=== PATIENT | female | born 1940 | race Caucasian/White ===

== ENCOUNTER 2017-01-25 07:58 | Emergency (ER) | payer OTHER ==
[~2017-01-25] VITALS: Ht 160 cm; Wt 84.0 kg
[2017-01-25 08:08] VITALS: Ht 160 cm; Wt 84.0 kg
[2017-01-25 08:22] VITALS: TEMP 97.8
--- NOTE | 2017-01-25 08:45 | ERD ---
ER Documentation Chief Complaint Date/Time DATE: 01/25/17 TIME: 08:42 Chief Complaint LT LOWER LEG PAIN S/P FALL THIS MORNING HPI This is a 76-year-old female with a known history of severe rheumatoid arthritis. The patient was brought in by EMS after her called because the patient had fallen while attempting to go to the bathroom. The patient indicated she ambulates with a walker due to her severe rheumatoid arthritis. She had used the bathroom and attempted to get up but slipped as her walker rolled forward. She indicated she did not hit her head or lose consciousness. She stated she is complaining of pain over her left lower extremity. She denies any back pain. She denies any shortness of breath at rest or exertion and no pleuritic chest pain. ROS All systems reviewed and are negative except as per history of present illness. Medications Home Meds Reported Medications Azelastine Hcl* (Azelastine Hcl*) 137 Mcg/0.137 Ml [place].pump, 1 SPRAY NASAL BID , #1 EA TO EACH NOSTRIL 01/25/17 Hydrochlorothiazide* (Hydrochlorothiazide*) 25 Mg Tab, 25 MG PO DAILY, #30 TAB 01/25/17 Mirtazapine* (Mirtazapine*) 7.5 Mg Tablet, 7.5 MG PO HS, TAB 01/25/17 Alendronate Sodium* (Fosamax*) 70 Mg Tablet, 70 MG PO Q7D, #4 TAB 01/25/17 Prednisone* (Prednisone*) 1 Mg Tablet, 3 MG PO DAILY, TAB 01/25/17 Metoprolol Tartrate* (Lopressor*) 100 Mg Tablet, 100 MG PO BID, #60 TAB 01/25/17 Lisinopril* (Lisinopril*) 40 Mg Tablet, 40 MG PO BID, #30 TAB 01/25/17 Potassium Chloride* (K-Dur*) 10 Meq Tab.prt.sr, 10 MEQ PO DAILY, TAB PT TAKE EVERY OTHER DAY DR NOT AWARE 01/25/17 Adalimumab (Humira) 40 Mg/0.8 Ml Pen.ij.kit, 40 MG SQ EVERY OTHER Thursday01/25/17 Allergies Allergies: Coded Allergies: Penicillins (Verified Allergy, Unknown, RASH, 01/25/17) Physical Exam Vitals Vital Signs Date Time Temp Pulse Resp B/P Pulse Ox O2 Delivery O2 Flow Rate FiO2 01/25/17 13:20 89 22 147/85 95 Room Air 01/25/17 10:39 87 18 129/86 98 01/25/17 08:22 97.8 90 16 147/98 95 Room Air 01/25/17 08:08 97.8 92 20 147/98 96 Physical Exam Constitutional:Well-developed. Well-nourished. HEENT:Normocephalic. Atraumatic.Pupils were equal round reactive to light. Moist mucous membranes.No tonsillar exudates. No nasoseptal hematoma. No hemotympanum. Neck: No nuchal rigidity. No lymphadenopathy. No posterior cervical spine tenderness or step-offs. Respiratory: Not using accessory muscles of respiration.Lungs were clear to auscultation bilaterally. No rhonchi. No rales. No wheezing. Cardiovascular: Regular rate regular rhythm.No murmurs. No rubs were appreciated.S1, S2 normal. Distal pulses are palpable 2+ bilaterally. GI: Abdomen was soft. Nontender. Non Distended. No pulsatile abdominal masses or bruits. No rebound. No guarding. Bowel sounds were present and normal. Muscle skeletal: Flexion contraction of the bilateral lower extremities with tenderness over the medial distal left lower extremity. Severe rheumatoid arthritic changes of the digits of the upper and lower extremities with lateral angulation deformity of the bilateral feet. No tenderness over the left medial or lateral malleolus. No midfoot tenderness on the left. No tenderness over the base of the fifth metatarsal. Skin: No petechia, no purpura. No lesions on the palms or the soles of the feet. No maculopapular rash. NEURO: Patient was alert, awake, orientated x3.No facial droop. Gait not observed as patient was in too much discomfort and speech had regular rate and rhythm. No focal neurological deficits. Result Diagram: 01/25/17 1036 01/25/17 1036 Results 24 hrs Laboratory Tests Test 01/25/17 10:36 White Blood Count 9.410^3/ul Red Blood Count 4.5910^6/ul Hemoglobin 14.3g/dl Hematocrit 43.2% Mean Corpuscular Volume 94.1fl Mean Corpuscular Hemoglobin 31.2pg Mean Corpuscular Hemoglobin Concent 33.1g/dl Red Cell Distribution Width 14.2% Platelet Count 74677^3/UL Mean Platelet Volume 10.5fl Neutrophils % 74.8% Lymphocytes % 15.3% Monocytes % 7.3% Eosinophils % 1.8% Basophils % 0.4% Nucleated Red Blood Cells % 0.0/100WBC Neutrophils # 7.010^3/ul Lymphocytes # 1.410^3/ul Monocytes # 0.710^3/ul Eosinophils # 0.210^3/ul Basophils # 0.010^3/ul Nucleated Red Blood Cells # 0.010^3/ul Prothrombin Time 12.8Sec Prothrombin Time Ratio 1.0 INR International Normalized Ratio 0.96 Activated Partial Thromboplast Time 25.4Sec Sodium Level 142mmol/L Potassium Level 3.4mmol/L Chloride Level 107mmol/L Carbon Dioxide Level 28mmol/L Anion Gap 10 Blood Urea Nitrogen 13mg/dl Creatinine 0.67mg/dl Glucose Level 92mg/dl Calcium Level 9.3mg/dl Total Bilirubin 0.4mg/dl Direct Bilirubin 0.00mg/dl Indirect Bilirubin 0.4mg/dl Aspartate Amino Transf (AST/SGOT) 25IU/L Alanine Aminotransferase (ALT/SGPT) 28IU/L Alkaline Phosphatase 114IU/L Total Protein 6.4g/dl Albumin 3.3g/dl Globulin 3.10g/dl Albumin/Globulin Ratio 1.06 Current Medications Medications (Trade) Dose Ordered Sig/Liss Route PRN Reason Start Time Stop Time Status Last Admin Dose Admin Sodium Chloride (NS) 1,000 ml @ 1,000 mls/hr Q1H STAT IV 01/25/17 10:09 01/25/17 11:08 DC 01/25/17 10:32 Procedures/MDM This is a very pleasant 76-year-old female with a known history of severe rheumatoid arthritis who presented to the emergency department after she had a mechanical fall. The patient had IV access established by nursing staff and was given intravenous morphine and Dilaudid for analgesic control prior to radiographic imaging being obtained. I obtained x-rays of the patient's left tibia and fibula which indicated the following reviewed by both myself and the radiologist: 1. Acute comminuted fractures involving the distal left tibial and fibular metadiaphysis. There is no significant displacement. 2. Old appearing fracture deformity involving the proximal left fibular diaphysis. 3. Old appearing fractures involving the lateral tibial plateau and the medial femoral condyle with a calcification, possibly an avulsed fragment projecting medial to the femoral tibial joint space. 4. Osteoporosis 5. Vascular calcification. The patient had ancillary laboratory work which indicated no electrolyte abnormalities. The patient received a liter bolus of 0.9 normal saline. I did feel the patient was stable for transfer and spoke with her [facility] physician who is going to arrange for the patient to be transferred to a rehabilitation facility. The patient had been placed in a posterior leg splint for immobilization. Prior to the splint being placed there is no signs of compartment syndrome, skin breakdown or vascular compromise agent. After the splint was placed the patient remained neurovascularly intact. Departure Diagnosis: Primary Impression: Fracture, tibia, with fibula Encounter type: initial encounter Fracture type: closed Laterality: left Qualified Code: S82.202A - Fracture, tibia, with fibula, left, closed, initial encounter Condition: Serious BARBARA JOHNSON Jan 25, 2017 08:45
--- NOTE | 2017-01-25 09:45 | RADRPT ---
PROCEDURE: XR Left Tibia-Fibula CLINICAL INDICATION: Fall with history of RA, pain TECHNIQUE: AP and lateral radiographs were submitted COMPARISON: None FINDINGS: Osseous structures: There is a comminuted oblique fracture involving the distal left tibial metadiap hysis in which the main distal fragment is displaced dorsally by a cortical width. There is a commi nuted fracture of the distal left fibular metadiaphysis without significant displacement. There is an old appearing fracture involving the proximal left fibular diaphysis without significant displace ment and with callus bridging identified laterally. There is an old appearing fracture resulting in depression deformity to the lateral tibial plateau and there appears of the an avulsion at the dist al medial femoral condyle which is likely old. Joint spaces: There is narrowing of the medial femoral tibial joint space. Soft tissues: A calcification projects medial to the femoral tibial joint. Vascular calcification i s noted. IMPRESSION: 1. Acute comminuted fractures involving the distal left tibial and fibular metadiaphysis. There is no significant displacement. 2. Old appearing fracture deformity involving the proximal left fibular diaphysis. 3. Old appearing fractures involving the lateral tibial plateau and the medial femoral condyle with a calcification, possibly an avulsed fragment projecting medial to the femoral tibial joint space. 4. Osteoporosis 5. Vascular calcification. Physician Jose Luis Date Time Electronically viewed and signed by Physician Jose Luis on 01/25/2017 09:44 /
[2017-01-25] MEDS ORDERED: SOD CHLORIDE 0.9% 1,000 ML IV STA (10:09)
[2017-01-25 10:46] LABS: ADD SCAN DIFF NO
[2017-01-25 10:48] LABS: BASOPHILS % 0.4 % (0.0-2.0); EOSINOPHILS # 0.2 10^3/ul (0.0-0.5); EOSINOPHILS % 1.8 % (0.0-7.0); HEMATOCRIT 43.2 % (37.0-47.0); HEMOGLOBIN 14.3 g/dl (12.0-16.0); LYMPHOCYTES # 1.4 10^3/ul (0.8-2.9); LYMPHOCYTES % 15.3 % (15.0-51.0); MEAN CORPUSCULAR HEMOGLOBIN 31.2 pg (29.0-33.0); MEAN CORPUSCULAR HGB CONC 33.1 g/dl (32.0-37.0); MEAN CORPUSCULAR VOLUME 94.1 fl (82.0-101.0); MEAN PLATELET VOLUME 10.5 fl (7.4-10.4); MONOCYTE # 0.7 10^3/ul (0.3-0.9); MONOCYTES % 7.3 % (0.0-11.0); NEUTROPHILS % 74.8 % (39.0-77.0); PLATELET COUNT 190 10^3/UL (140-415); RED BLOOD COUNT 4.59 10^6/ul (4.20-5.40); RED CELL DISTRIBUTION WIDTH 14.2 % (11.5-14.5); WHITE BLOOD COUNT 9.4 10^3/ul (4.8-10.8)
[2017-01-25 11:03] LABS: ALBUMIN 3.3 g/dl (3.3-4.9)
[2017-01-25 11:04] LABS: POTASSIUM 3.4 mmol/L (3.5-5.1)
[2017-01-25 11:06] LABS: ALBUMIN/GLOBULIN RATIO 1.06; BILIRUBIN,INDIRECT 0.4 mg/dl (0-1.1); BILIRUBIN,TOTAL 0.4 mg/dl (0.2-1.3); CREATININE 0.67 mg/dl (0.44-1.00); TOTAL PROTEIN 6.4 g/dl (6.1-8.1)
[2017-01-25 11:07] LABS: CALCIUM 9.3 mg/dl (8.4-10.2)
[2017-01-25 11:10] LABS: INR 0.96; PROTIME 12.8 Sec (12.2-14.2)
[2017-01-25 11:11] LABS: PARTIAL THROMBOPLASTIN TIME 25.4 Sec (25.0-35.0)
[2017-01-25] MEDS ORDERED: ADAL40PE SQ (11:14)
[2017-01-25] MEDS ORDERED: POTA10TA37 PO (11:15)
[2017-01-25] MEDS ORDERED: METO-407 PO (11:16)
[2017-01-25] MEDS ORDERED: LISI40TA9 PO (11:16)
[2017-01-25] MEDS ORDERED: MIRT7.5T8 PO (11:17)
[2017-01-25] MEDS ORDERED: ALEN70TA30 PO (11:17)
[2017-01-25] MEDS ORDERED: PRED1TAB2 PO (11:17)
[2017-01-25] MEDS ORDERED: AZEL137S9 NASAL (11:18)
[2017-01-25] MEDS ORDERED: HYD25 PO (11:18)
[2017-01-25] MEDS ORDERED: morphine 4 MG/ML VIAL IV STA (13:55)
[2017-01-25] MEDS ORDERED: ONDANSETRON 4 MG INJ IV STA (13:55)
[2017-01-25 15:06] VITALS: BP 134/80; PULSE 85; RESP 18
== END 2017-01-25 15:50 | disposition home or self-care (01) ==
LOC: E/R 07:58
DX: S82.202A Unspecified fracture of shaft of left tibia, initial encounter for closed fracture (principal); R40.2252 Coma scale, best verbal response, oriented, at arrival to emergency department; R40.2142 Coma scale, eyes open, spontaneous, at arrival to emergency department; R40.2362 Coma scale, best motor response, obeys commands, at arrival to emergency department; W01.0XXA Fall on same level from slipping, tripping and stumbling without subsequent striking against object, initial encounter; Y92.9 Unspecified place or not applicable
CPT/HCPCS: 29515; 73590; 80053; 85025; 85610; 85730; J2270; J2405; J7030; 36415; 96374; 96375

== ENCOUNTER 2017-05-09 09:35 | Emergency (ER) | payer OTHER ==
[~2017-05-09] VITALS: Ht 172.7 cm; Wt 55.0 kg
[~2017-05-09 09:35] MED LIST: ADAL40PE SQ; ALEN70TA30 PO; AZEL137S9 NASAL; HYD25 PO; LISI40TA9 PO; METO-407 PO; MIRT7.5T8 PO; POTA10TA37 PO; PRED1TAB2 PO
[2017-05-09] MEDS ORDERED: SODIUM CHLORIDE 0.9% 1L BAG IV* STA (09:47)
[2017-05-09 09:50] VITALS: Ht 172.7 cm; Wt 55.0 kg
[2017-05-09] MEDS ORDERED: VANCOMYCIN 1 GM (PMX) 250 ML IVPB ONE (10:00)
[2017-05-09] MEDS ORDERED: IBUPROFEN 600 MG TAB PO ONE (10:00)
[2017-05-09] MEDS ORDERED: LEVOFLOXACIN 750MG/D5W (PMX) 150 ML IVPB ONE (10:00)
[2017-05-09 10:14] LABS: ABNORMAL IP MESSAGE 1; BASOPHILS % 0.1 % (0.0-2.0); HEMATOCRIT 34.1 % (37.0-47.0); HEMOGLOBIN 11.2 g/dl (12.0-16.0); LYMPHOCYTES # 0.6 10^3/ul (0.8-2.9); LYMPHOCYTES % 3.2 % (15.0-51.0); MEAN CORPUSCULAR HEMOGLOBIN 28.2 pg (29.0-33.0); MEAN CORPUSCULAR HGB CONC 32.8 g/dl (32.0-37.0); MEAN CORPUSCULAR VOLUME 85.9 fl (82.0-101.0); MEAN PLATELET VOLUME 10.7 fl (7.4-10.4); MONOCYTE # 1.4 10^3/ul (0.3-0.9); MONOCYTES % 8.3 % (0.0-11.0); NEUTROPHIL # 14.8 10^3/ul (1.6-7.5); NEUTROPHILS % 87.2 % (39.0-77.0); PLATELET COUNT 179 10^3/UL (140-415); RED BLOOD COUNT 3.97 10^6/ul (4.20-5.40); RED CELL DISTRIBUTION WIDTH 14.5 % (11.5-14.5)
--- NOTE | 2017-05-09 10:23 | RADRPT ---
PROCEDURE: XR Chest. CLINICAL INDICATION: Chest pain TECHNIQUE: Single frontal view of the chest was obtained. COMPARISON: None FINDINGS: The heart is within normal limits. The thoracic aorta is calcified. There are mild left lower lobe linear atelectatic changes. The lungs are otherwise clear. There is no pleural effusion or pneumothorax. There is a right shoulder replacement. RPTAT: AA IMPRESSION: No acute disease. Calcified aorta consistent with atherosclerotic disease. .Renzo Fox MD, MD Date Time Electronically viewed and signed by .Renzo Fox MD, on 05/09/2017 10:23 .S/
[2017-05-09 10:25] LABS: POSITIVE DIFF @See below
[2017-05-09 10:31] LABS: INR 1.23; PROTIME 15.6 Sec (12.2-14.2); PT RATIO 1.2
[2017-05-09 10:35] LABS: ALANINE AMINOTRANSFERASE 33 IU/L (13-69); ALKALINE PHOSPHATASE 118 IU/L (42-121); ANION GAP 16 (8-16); ASPARTATE AMINO TRANSFERASE 28 IU/L (15-46); BILIRUBIN,INDIRECT 0.7 mg/dl (0-1.1); BILIRUBIN,TOTAL 0.7 mg/dl (0.2-1.3); BLOOD UREA NITROGEN 16 mg/dl (7-20); CALCIUM 8.3 mg/dl (8.4-10.2); CARBON DIOXIDE 23 mmol/L (21-31); CHLORIDE 104 mmol/L (97-110); CREATININE 0.62 mg/dl (0.44-1.00); GLUCOSE 126 mg/dl (70-220); POTASSIUM 4.4 mmol/L (3.5-5.1); SODIUM 139 mmol/L (135-144); TOTAL PROTEIN 6.3 g/dl (6.1-8.1)
[2017-05-09] MEDS ORDERED: TRIA1CAP PO (10:44)
[2017-05-09] MEDS ORDERED: PRED5 PO (10:44)
[2017-05-09] MEDS ORDERED: METO-429 PO (10:44)
[2017-05-09 10:46] LABS: TROPONIN-I < 0.012 ng/ml (0.00-0.12)
[2017-05-09 10:58] LABS: ADD UMIC YES; UR ASCORBIC ACID 40 mg/dL (NEGATIVE); UR BACTERIA FEW /HPF (NONE SEEN); UR BILIRUBIN (Dip) NEGATIVE (NEGATIVE); UR BLOOD (Dip) NEGATIVE (NEGATIVE); UR CLARITY SLIGHTLY CLOUDY (CLEAR); UR COLOR YELLOW (YELLOW); UR GLUCOSE (Dip) NEGATIVE (NEGATIVE); UR KETONES (Dip) NEGATIVE (NEGATIVE); UR LEUKOCYTE ESTERASE (Dip) NEGATIVE Leu/ul (NEGATIVE); UR MUCUS FEW /HPF (NONE SEEN); UR NITRITE (Dip) NEGATIVE (NEGATIVE); UR RBC 1 /HPF (0-5); UR SPECIFIC GRAVITY (Dip) 1.017 (1.003-1.030); UR TOTAL PROTEIN (Dip) 1+ mg/dl (NEGATIVE); UR UROBILINOGEN (Dip) NEGATIVE (NEGATIVE)
[2017-05-09] MEDS ORDERED: CLINDAMYCIN 600 MG/D5W (PMX) 50 ML IVPB SCH (11:30)
--- NOTE | 2017-05-09 11:47 | ERA ---
ER Documentation Chief Complaint Date/Time DATE: 05/09/17 TIME: 11:43 Chief Complaint BIB [facility] FOR EVAL OF GENERALIZED WEAKNESS. PT WITH FEVER HPI This is a 77-year-old female who presents from home for generalized weakness. Approximately 48 hours of symptoms. The patient is feeling feverish. She denies any cough or shortness of breath no abdominal pain dysuria urgency or frequency. The patient describes a right gluteal decubitus wound that appears to be worsening. ROS All systems reviewed and are negative except as per history of present illness. Medications Home Meds Reported Medications Prednisone* (Prednisone*) 5 Mg Tab, 5 MG PO DAILY, TAB 05/09/17 Metoprolol Tartrate* (Lopressor*) 50 Mg Tab, 50 MG PO BID, #60 TAB 05/09/17 Triamterene/Hydrochlorothiazid (Dyazide 37.5-25 Capsule) 1 Each Capsule, 1 TAB PO DAILY, CAP 05/09/17 Azelastine Hcl* (Azelastine Hcl*) 137 Mcg/0.137 Ml [place].pump, 1 SPRAY NASAL BID , #1 EA TO EACH NOSTRIL 01/25/17 Mirtazapine* (Mirtazapine*) 7.5 Mg Tablet, 7.5 MG PO HS, TAB 01/25/17 Lisinopril* (Lisinopril*) 40 Mg Tablet, 40 MG PO BID, #30 TAB 01/25/17 Discontinued Reported Medications Hydrochlorothiazide* (Hydrochlorothiazide*) 25 Mg Tab, 25 MG PO DAILY, #30 TAB 01/25/17 Alendronate Sodium* (Fosamax*) 70 Mg Tablet, 70 MG PO Q7D, #4 TAB 01/25/17 Prednisone* (Prednisone*) 1 Mg Tablet, 3 MG PO DAILY, TAB 01/25/17 Metoprolol Tartrate* (Lopressor*) 100 Mg Tablet, 100 MG PO BID, #60 TAB 01/25/17 Potassium Chloride* (K-Dur*) 10 Meq Tab.prt.sr, 10 MEQ PO DAILY, TAB PT TAKE EVERY OTHER DAY DR NOT AWARE 01/25/17 Adalimumab (Humira) 40 Mg/0.8 Ml Pen.ij.kit, 40 MG SQ EVERY OTHER Thursday01/25/17 Allergies Allergies: Coded Allergies: Penicillins (Verified Allergy, Unknown, RASH, 01/25/17) PMhx/Soc History of Surgery: Yes (Rhinoplasty, Tonsillectomy, R shoulder) Anesthesia Reaction: No Hx Neurological Disorder: No Hx Respiratory Disorders: No Hx Cardiac Disorders: Yes (Hypotension) Hx Psychiatric Problems: Yes Hx Miscellaneous Medical Probl: Yes (Rheumatoid Arthritis) Hx Alcohol Use: Yes Hx Substance Use: No Hx Tobacco Use: Yes Smoking Status: Former smoker FmHx Family History: No diabetes Physical Exam Vitals Vital Signs Date Time Temp Pulse Resp B/P Pulse Ox O2 Delivery O2 Flow Rate FiO2 05/09/17 11:30 99.0 80 18 95/59 95 Room Air 05/09/17 10:03 0 05/09/17 09:50 101.3 95 19 116/65 97 Physical Exam General: Well developed, well nourished, no acute distress Head: Normocephalic, atraumatic. Eyes: Pupils equally reactive, EOM intact ENT: Moist mucous membranes Neck: Supple, no lymphadenopathy Respiratory: Lungs clear bilaterally, no distress Cardiovascular: Tachycardia, no murmurs, rubs, or gallops Abdominal: Soft, non-tender, non-distended, no peritoneal signs : Deferred MSK: No edema, no unilateral swelling, 5/5 strength Neurologic: Alert and oriented, moving all extremities, normal speech, no focal weakness, no cerebellar signs Skin: Right gluteal area with erythema warmth and tenderness mild fluctuance and a draining wound that appears to be consistent with a draining abscess Psych: Normal mood Result Diagram: 05/09/17 1000 05/09/17 1000 Results 24 hrs Laboratory Tests Test 05/09/17 10:00 05/09/17 10:20 White Blood Count 17.010^3/ul Red Blood Count 3.9710^6/ul Hemoglobin 11.2g/dl Hematocrit 34.1% Mean Corpuscular Volume 85.9fl Mean Corpuscular Hemoglobin 28.2pg Mean Corpuscular Hemoglobin Concent 32.8g/dl Red Cell Distribution Width 14.5% Platelet Count 71117^3/UL Mean Platelet Volume 10.7fl Neutrophils % 87.2% Lymphocytes % 3.2% Monocytes % 8.3% Eosinophils % 0.0% Basophils % 0.1% Nucleated Red Blood Cells % 0.0/100WBC Neutrophils # 14.810^3/ul Lymphocytes # 0.610^3/ul Monocytes # 1.410^3/ul Eosinophils # 0.010^3/ul Basophils # 0.010^3/ul Nucleated Red Blood Cells # 0.010^3/ul Prothrombin Time 15.6Sec Prothrombin Time Ratio 1.2 INR International Normalized Ratio 1.23 Activated Partial Thromboplast Time 26.0Sec Sodium Level 139mmol/L Potassium Level 4.4mmol/L Chloride Level 104mmol/L Carbon Dioxide Level 23mmol/L Anion Gap 16 Blood Urea Nitrogen 16mg/dl Creatinine 0.62mg/dl Glucose Level 126mg/dl Lactic Acid Level 1.3mmol/L Calcium Level 8.3mg/dl Total Bilirubin 0.7mg/dl Direct Bilirubin 0.00mg/dl Indirect Bilirubin 0.7mg/dl Aspartate Amino Transf (AST/SGOT) 28IU/L Alanine Aminotransferase (ALT/SGPT) 33IU/L Alkaline Phosphatase 118IU/L Troponin I < 0.012ng/ml Total Protein 6.3g/dl Albumin 3.0g/dl Globulin 3.30g/dl Albumin/Globulin Ratio 0.90 Urine Color YELLOW Urine Clarity SLIGHTLY CLOUDY Urine pH 5.0 Urine Specific [place] 1.017 Urine Ketones NEGATIVEmg/dL Urine Nitrite NEGATIVEmg/dL Urine Bilirubin NEGATIVEmg/dL Urine Urobilinogen NEGATIVEmg/dL Urine Leukocyte Esterase NEGATIVELeu/ul Urine Microscopic RBC 1/HPF Urine Microscopic WBC 1/HPF Urine Bacteria FEW/HPF Urine Mucus FEW/HPF Urine Hemoglobin NEGATIVEmg/dL Urine Glucose NEGATIVEmg/dL Urine Total Protein 1+mg/dl Current Medications Medications (Trade) Dose Ordered Sig/Liss Route PRN Reason Start Time Stop Time Status Last Admin Dose Admin Sodium Chloride 1740 ml 1,740 ml BOLUS OVER 2 HOURS STAT IV* 05/09/17 09:47 05/09/17 09:50 DC 05/09/17 10:45 Vancomycin HCl 250 ml @ 125 mls/hr ONCE ONCE IVPB 05/09/17 10:00 05/09/17 11:59 DC Levofloxacin/ Dextrose (Levaquin 750 Mg/ D5W 150 ml (Pmx)) 150 ml @ 100 mls/hr ONCE ONCE IVPB 05/09/17 10:00 05/09/17 11:29 DC 05/09/17 10:47 Ibuprofen 600 mg 600 mg ONCE ONCE PO 05/09/17 10:00 05/09/17 10:01 DC 05/09/17 10:47 Clindamycin HCl/ Dextrose (Cleocin 600 Mg/ D5W (Pmx)) 50 ml @ 50 mls/hr ONCE IVPB 05/09/17 11:30 05/09/17 12:29 DC 05/09/17 12:34 Procedures/MDM EKG, MONITORS, & DIAGNOSTIC IMAGING: EKG: I reviewed and interpreted a 12-lead EKG. Rhythm: Normal sinus rhythm Ectopy: None Intervals: No abnormalities ST segments: No elevations or depressions T waves: No contiguous inversions Chest x-ray: I reviewed and interpreted a 1 view of the chest Mediastinum: No enlargement Cardiac silhouette: No cardiomegaly Airspace: Clear lung stubbs bilaterally without evidence of pneumothorax Bones: No evidence of fracture LAB INTERPRETATION: Leukocytosis, normal lactic acid MEDICAL DECISION MAKING: The patient has signs and symptoms concerning for sepsis. The patient has Sirs with a fever. The likely source is a gluteal abscess that appears to be draining. No evidence of perirectal abscess and no indication for CT imaging at this time. No evidence of necrotizing process. Lactic acid is normal the patient's blood pressure is reassuring. ER COURSE: The patient does have Sirs with a source consistent with sepsis. 30/kg of saline was provided. Given penicillin allergy, the patient was given vancomycin , Levaquin and clindamycin. No indication for I&D at this time given active drainage. The patient remains resting comfortably and is hemodynamically stable. No indication for central line. No evidence of severe sepsis. I kept the patient and/or family informed of laboratory and diagnostic imaging results throughout the emergency room course. DISPOSITION PLAN: Medical surgical admission for management of sepsis The patient may benefit from nonemergent general surgery consultation for possible I&D if no improvement with antibiotics alone. CONSULTATION: Accepting care team and consultations: I discussed the current laboratory data, diagnostic imaging and emergency care provided. Admitting team: Dr Snyder Admitting team indication: Insurance directed, capitated to [facility], stable to transfer and the benefits outweigh the risks Consulting services: Sepsis Documentation: Patient's infectious symptoms have not stabilized and the patient is at risk of rapid decompensation. The patient will be admitted for careful hydration, antibiotic therapy, and infectious source control. SEVERE SEPSIS CRITERIA: Infectious source: Right gluteal abscess End organ damage indicated by: No evidence of endorgan injury SEPSIS MANAGEMENT Time of recognition of severe sepsis/septic shock: No evidence of severe sepsis or septic shock 3 HOUR BUNDLE Blood cultures x 2 before broad-spectrum antibiotics: Yes 30 ml/kg NS bolus Completed Initial lactate less than 2 Repeat lactate pending repeat SEPTIC SHOCK ASSESSMENT: No lactic acid > 4.0 No persistent hypotension (SBP < 90 or 40 mmHg drop, MAP < 65) despite 30 mL/kg IV fluid bolus VOLUME REASSESSMENT FOR SEPTIC SHOCK: Not required PERSISTENT HYPOTENSION TREATMENT: Comfort care No Central line Not Required Vasopressor started Not required I considered further perfusion assessment with CVP measurement, SCVO2, bedside ultrasound volume assessment, passive leg raise, trial of further fluid bolus. And proceeded with 30 ml/kg fluid bolus of NSS, broad spectrum antbiotics, and admission. CRITICAL CARE Critical care time 35 minutes Emergent fluid management while maintaining close respiratory support. Provision of immediate and broad-spectrum antibiotic therapy. Simultaneous assessment for possible sources in order to direct targeted therapy. Consideration for invasive and chemical support to prevent cardiopulmonary collapse. Critical care time is independent of procedures performed. Departure Diagnosis: Primary Impression: Sepsis Qualified Code: A41.9 - Sepsis, due to unspecified organism Additional Impressions: Gluteal abscess Generalized weakness Condition: Stable NARENDRA MCNAIR MD May 09, 2017 11:47
[2017-05-09 15:17] VITALS: BP 104/57; PULSE 83; RESP 20; TEMP 97.9
== END 2017-05-09 15:40 | disposition short-term general hospital (02) ==
LOC: E/R 09:35
DX: A41.9 Sepsis, unspecified organism (principal); L02.31 Cutaneous abscess of buttock; Z87.891 Personal history of nicotine dependence
CPT/HCPCS: 36415; 71010; 80053; 81001; 83605; 84484; 85025; 85610; 85730; 87040; 87086; 93005; 96365; 96366; 96368; 99291; J1956; J3370; J7030